=== PATIENT | female | born 1990 | race Caucasian/White ===

== ENCOUNTER 2019-10-25 10:00 | Inpatient (IN) ==
[2019-10-25] MEDS ORDERED: miSOPROStoL 25 MCG TABLET VG PRN (12:13)
[2019-10-25] MEDS ORDERED: Famotidine 20 MG/2 ML VIAL IVP PRN (12:14)
[2019-10-25] MEDS ORDERED: Naloxone 0.4 MG/ML INJ IVP PRN (12:14)
[2019-10-25] MEDS ORDERED: Metoclopramide 10 MG/2 ML VIAL IVP PRN (12:14)
[2019-10-25 13:14] LABS: Amphetamine Screen,Urine Negative ng/mL (Cutoff=1000); Barbiturate Screen,Urine Negative ng/mL (Cutoff=200); Benzodiazepines Screen,Urine Negative ng/mL (Cutoff=200); Cannabinoid Screen,Urine Negative ng/mL (Cutoff = 50); Cocaine Screen,Urine Negative ng/mL (Cutoff= 300); Opiate Screen,Urine Negative ng/mL (Cutoff=300); Phencyclidine Screen,Urine Negative ng/mL (Cutoff=25)
[2019-10-25] MEDS ORDERED: miSOPROStoL 25 MCG TABLET PO PRN (13:41)
[2019-10-25 18:27] LABS: Basophils % 0.3 %; Eosinophils # 0.2 K/mcL (0.0-0.6); Hematocrit 36.8 % (35.3-44.9); Hemoglobin 11.9 g/dL (11.5-15.4); Immature Granulocytes % 0.7 % (0-4); Lymphocytes # 1.8 K/mcL (0.6-4.6); Lymphocytes % 20.7 %; Mean Corpuscular HGB Conc 32.3 g/dL (31.6-35.5); Mean Corpuscular Hemoglobin 27.8 pg (28.0-33.3); Mean Platelet Volume 11.6 fL (9.4-12.4); Monocytes # 0.6 K/mcL (0.0-1.3); Monocytes % 6.5 %; Platelet Count 265 K/mcL (140-400); Red Blood Count 4.28 M/mcL (3.82-4.97); Red Cell Distribution Width 16.7 % (11.5-14.5); Segmented Neutrophils % 69.8 %; White Blood Count 8.6 K/mcL (4.3-11.1)
[2019-10-25] MEDS ORDERED: Oxytocin 20 units/ LR 1000 mL 20 UNIT/1,000 ML BAG IVC SCH (18:30)
[2019-10-25] MEDS ORDERED: Epidural Premix (fent/bupiv) 110 ML EP ONE (20:05)
[2019-10-25] MEDS: Epidural Premix (fent/bupiv) 110 ML EP SCH (20:40)
[2019-10-25] MEDS: Ringers Solution, Lactated 1,000 ML IVC SCH (20:55)
[2019-10-25] MEDS ORDERED: Acetaminophen 325 MG TABLET PO ONE (23:48)
[2019-10-26] MEDS: Epidural Premix (fent/bupiv) 110 ML EP SCH (01:24)
[2019-10-26] MEDS ORDERED: Terbutaline 1 MG/ML VIAL SQ ONE (01:42)
[2019-10-26] MEDS ORDERED: Ibuprofen 600 MG TABLET PO PRN (05:07)
[2019-10-26] MEDS ORDERED: Measles/Mumps/Rubella Vacc 0.5 ML VIAL SQ PRN (05:07)
[2019-10-26] MEDS ORDERED: Rho Immune Globulin 1,500 UNIT SYRINGE IM PRN (05:07)
[2019-10-26] MEDS: BuPROPion XL (24 HR) 150 MG TABLET PO SCH (07:46)
[2019-10-26] MEDS: Oxytocin 20 units/ LR 1000 mL 20 UNIT/1,000 ML BAG IVC SCH ×2 (07:47→09:29)
[2019-10-26] MEDS: *HR* Buprenorphine HCl 2 MG SUBLINGUAL TABLET SL SCH (07:47)
[2019-10-26] MEDS: Prenatal Vit/FA 1 EACH TABLET PO SCH (07:47)
[2019-10-26] MEDS: Acetaminophen 325 MG TABLET PO PRN ×3 (07:50→19:59)
[2019-10-26] MEDS ORDERED: *HR* Buprenorphine HCl 2 MG SUBLINGUAL TABLET SL SCH (09:00)
[2019-10-26] MEDS: Ringers Solution, Lactated 1,000 ML IVC SCH ×2 (09:28→09:29)
[2019-10-27 08:22] VITALS: BP 116/72
[2019-10-27] MEDS: *HR* Buprenorphine HCl 2 MG SUBLINGUAL TABLET SL SCH (09:37)
[2019-10-27] MEDS: BuPROPion XL (24 HR) 150 MG TABLET PO SCH (09:37)
[2019-10-27] MEDS: Prenatal Vit/FA 1 EACH TABLET PO SCH (09:37)
== END 2019-10-27 10:45 | disposition home or self-care (01) | DRG 560 ==
LOC: 1NENULAB 12:04 → 1NENUOBS 10-26 04:46
PROVIDERS: ADMIT Student in an Organized Health Care Education/Training Program; ATTEND Student in an Organized Health Care Education/Training Program

== ENCOUNTER 2022-08-30 13:04 | Observation (INO) ==
[2022-08-30] MEDS ORDERED: 0.9 % Sodium Chloride 1,000 ML IVC ONE (13:18)
[2022-08-30] MEDS ORDERED: levETIRAcetam 1,000 MG in 0.9 % Sodium Chloride 100 ML IVPB ONE (13:20)
[2022-08-30] MEDS ORDERED: Ondansetron 4 MG/2 ML VIAL IVP ONE (14:00)
[2022-08-30 14:11] LABS: Basophils % 0.3 %; Eosinophils % 0.1 %; Hemoglobin 13.2 g/dL (11.5-15.4); Immature Granulocytes % 0.4 % (0-4); Lymphocytes # 1.6 K/mcL (0.6-4.6); Lymphocytes % 10.1 %; Mean Corpuscular Hemoglobin 27.7 pg (28.0-33.3); Mean Platelet Volume 9.7 fL (9.4-12.4); Monocytes # 0.4 K/mcL (0.0-1.3); Monocytes % 2.6 %; Neutrophils # 13.3 K/mcL (1.6-8.9); Platelet Count 300 K/mcL (140-400); Red Blood Count 4.76 M/mcL (3.82-4.97); Red Cell Distribution Width 13.2 % (11.5-14.5); Segmented Neutrophils % 86.5 %; White Blood Count 15.4 K/mcL (4.3-11.1)
[2022-08-30 14:29] LABS: Acetaminophen < 10 mcg/mL (10-20); Alanine Aminotransferase 17 Units/L (7-52); Albumin 4.8 g/dL (3.5-5.7); Albumin/Globulin Ratio 1.8 (1.1-2.2); Alkaline Phosphatase 55 Units/L (34-104); Aspartate Amino Transferase 25 Units/L (13-39); BUN/Creatinine Ratio 22 (6-26); Bilirubin,Direct 0.1 mg/dL (0.0-0.2); Bilirubin,Indirect 0.3 mg/dL (0.0-1.0); Bilirubin,Total 0.4 mg/dL (0.3-1.0); Blood Urea Nitrogen 20 mg/dL (6-20); Calcium 9.9 mg/dL (8.6-10.3); Carbon Dioxide 27 mEq/L (23-29); Chloride 105 mEq/L (98-107); Ethanol < 10 mg/dL (Less than 10); Globulin 2.6 g/dL (2.4-3.5); Glucose 69 mg/dL (70-105); Magnesium 2.3 mg/dL (1.6-2.6); Osmolality,Calculated 291 (280-300); Phosphorous 2.3 mg/dL (2.7-4.5); Sodium 140 mEq/L (136-145); Total Protein 7.4 g/dL (6.4-8.9)
[2022-08-30] MEDS ORDERED: Naloxone 0.4 MG/ML INJ IVP PRN (18:20)
[2022-08-30] MEDS ORDERED: Ondansetron 4 MG/2 ML VIAL IVP PRN (18:20)
[2022-08-30] MEDS ORDERED: *HR* LORazepam 2 MG/ML VIAL IVP PRN (18:26)
[2022-08-30] MEDS: D5% in 0.9% NACL 1,000 ML IVC SCH (19:30)
[2022-08-30] MEDS: Ipratropium/Albuterol Neb 3 ML IH SCH ×2 (20:03→23:21)
[2022-08-30] MEDS ORDERED: 0.9 % Sodium Chloride 500 ML IV ONE (20:55)
[2022-08-30] MEDS ORDERED: 0.9 % Sodium Chloride 500 ML ONE (20:56)
[2022-08-30 21:05] LABS: ABG Base Excess -12 mEq/L (-2 to 3); ABG HCO3 15 mEq/L (21-27); ABG Oxygen Saturation 96 % (95-98); ABG PCO2 34 mmHg (35-45); ABG PH 7.24 pH Units (7.32-7.45); ABG PO2 97 mmHg (85-104); ABG TCO2 16 mEq/L (20-26)
[2022-08-31 02:33] LABS: Basophils % 0.1 %; Eosinophils % 0.1 %; Hematocrit 36.3 % (35.3-44.9); Hemoglobin 11.8 g/dL (11.5-15.4); Immature Granulocytes % 0.4 % (0-4); Lymphocytes # 1.2 K/mcL (0.6-4.6); Lymphocytes % 8.5 %; Mean Corpuscular HGB Conc 32.5 g/dL (31.6-35.5); Mean Corpuscular Volume 86.2 fL (83.0-100.0); Mean Platelet Volume 10.8 fL (9.4-12.4); Monocytes # 0.4 K/mcL (0.0-1.3); Monocytes % 2.7 %; Neutrophils # 12.3 K/mcL (1.6-8.9); Platelet Count 276 K/mcL (140-400); Red Blood Count 4.21 M/mcL (3.82-4.97); Red Cell Distribution Width 13.5 % (11.5-14.5); Segmented Neutrophils % 88.2 %; White Blood Count 13.9 K/mcL (4.3-11.1)
[2022-08-31 02:52] LABS: Alanine Aminotransferase 14 Units/L (7-52); Albumin 4.2 g/dL (3.5-5.7); Albumin/Globulin Ratio 1.7 (1.1-2.2); Alkaline Phosphatase 48 Units/L (34-104); Aspartate Amino Transferase 26 Units/L (13-39); BUN/Creatinine Ratio 27 (6-26); Bilirubin,Total 0.5 mg/dL (0.3-1.0); Blood Urea Nitrogen 23 mg/dL (6-20); Carbon Dioxide 18 mEq/L (23-29); Chloride 109 mEq/L (98-107); Globulin 2.5 g/dL (2.4-3.5); Glucose 103 mg/dL (70-105); Osmolality,Calculated 294 (280-300); Phosphorous 3.8 mg/dL (2.7-4.5); Potassium 3.7 mEq/L (3.5-5.1); Sodium 140 mEq/L (136-145); Total Protein 6.7 g/dL (6.4-8.9)
[2022-08-31] MEDS: D5% in 0.9% NACL 1,000 ML IVC SCH ×3 (03:06→18:10)
[2022-08-31] MEDS: Ipratropium/Albuterol Neb 3 ML IH SCH ×5 (03:46→20:16)
[2022-08-31 14:51] LABS: Bacteria,Urine Few per hpf (None-Few); Bilirubin,Urine Negative (Negative); Blood,Urine Negative (Negative); Clarity,Urine Turbid (Clear); Color,Urine Yellow (Yellow); Glucose,Urine (UA) Normal (Normal); Hyaline Casts,Urine Few per lpf (None Seen); Ketones,Urine 40 mg/dL (Negative); Leukocyte Esterase,Urine Large (Negative); Mucus,Urine Moderate per lpf (None-Few); Nitrite,Urine Positive (Negative); Protein,Urine 30 mg/dL (Neg-Trace); RBC,Urine 15-30 per hpf (0-3); Specific Gravity,Urine > 1.030 (1.010-1.025); Squamous Epithelial Cell,Urine Moderate per hpf (None-Few); Urobilinogen,Urine Normal (Normal); WBC,Urine TNTC per hpf (0-3)
[2022-08-31 14:59] LABS: Amphetamine Screen,Urine Positive ng/mL (Cutoff=1000); Barbiturate Screen,Urine Negative ng/mL (Cutoff=200); Benzodiazepines Screen,Urine Positive ng/mL (Cutoff=200); Cannabinoid Screen,Urine Negative ng/mL (Cutoff = 50); Cocaine Screen,Urine Negative ng/mL (Cutoff= 300); Opiate Screen,Urine Negative ng/mL (Cutoff=300); Phencyclidine Screen,Urine Negative ng/mL (Cutoff=25)
[2022-08-31] MEDS ORDERED: Acetaminophen 325 MG TABLET PO PRN (16:14)
[2022-08-31] MEDS ORDERED: Ipratropium/Albuterol Neb 3 ML IH PRN (22:49)
[2022-09-01] MEDS: D5% in 0.9% NACL 1,000 ML IVC SCH ×2 (02:32→10:12)
[2022-09-01 08:19] VITALS: BP 102/64; PULSE 66; TEMP 98; O2SAT 98
[2022-09-03 09:45] LABS: Barbiturates NEGATIVE ng/mL (Cutoff 50); Cocaine NEGATIVE ng/mL (Cutoff 20); Methadone NEGATIVE ng/mL (Cutoff 25); Opiates NEGATIVE ng/mL (Cutoff 20); Phencyclidine NEGATIVE ng/mL (Cutoff 10)
[2022-09-03 11:28] LABS: Amphetamines POSITIVE ng/mL (Cutoff 20); Benzodiazepines POSITIVE ng/mL (Cutoff 50); Buprenorphine POSITIVE ng/mL (Cutoff 1); Methamphetamines POSITIVE ng/mL (Cutoff 20)
== END 2022-09-01 10:50 | disposition home or self-care (01) ==
LOC: EMEROOARM 13:04 → 3BNU 13:04
PROVIDERS: ADMIT Internal Medicine; ATTEND Internal Medicine